=== PATIENT | male | born 1955 | race Caucasian/White ===

== ENCOUNTER 2017-02-10 12:22 | Day surgery (SDC) | payer BC ==
[~2017-02-10] VITALS: Ht 182.9 cm; Wt 79.8 kg
[2017-02-10 12:52] VITALS: BP 124/82; PULSE 65; TEMP 97.1
[2017-02-10 14:17] VITALS: BP 113/87; PULSE 69
[2017-02-10 14:32] VITALS: BP 106/76; PULSE 60
[2017-02-10 14:47] VITALS: BP 106/75; PULSE 62
[2017-02-10 15:02] VITALS: BP 97/73; PULSE 68
[2017-02-10 16:47] VITALS: BP 110/70; PULSE 58
== END 2017-02-10 15:25 | disposition home or self-care (01) ==
LOC: SDCO 12:22
DX: T18.128A Food in esophagus causing other injury, initial encounter (principal); K21.0 Gastro-esophageal reflux disease with esophagitis; K22.2 Esophageal obstruction; R13.10 Dysphagia, unspecified
CPT/HCPCS: J2250; J3010; J7030